=== PATIENT | male | born 1945 | race Caucasian/White ===

== ENCOUNTER 2018-01-03 04:26 | Emergency (ER) | payer OTHER ==
[2018-01-03 17:03] LABS: #Eosinphils 0.1 thou/uL (0.0-0.7); #Lymphocytes 0.5 thou/uL (1.20-3.40); #Monocytes 0.3 thou/uL (0.11-0.59); #Neutrophils 9.3 thou/uL (1.40-6.50); %Eosinophils 0.6 % (0.0-10.0); %Lymphocytes 4.7 % (21.0-51.0); %Monocytes 3.2 % (0.0-10.0); %Neutrophils 91.6 % (42.0-75.0); Hemoglobin 14.3 g/dL (14.0-18.0); Mean Corpuscular HGB CONC 34.2 g/dL (32.0-36.0); Mean Corpuscular Hemoglobin 34.1 pg (27.0-31.0); Mean Corpuscular Volume 99.7 fl (80.0-94.0); Mean Platelet Volume 6.5 fL (7.4-10.4); Platelet Count 268 thou/uL (130-400); RBC Distribution Width 13.3 % (11.5-14.5); White Blood Cell (WBC) Count 10.1 thou/uL (4.8-10.8)
[2018-01-03 17:08] LABS: ALV-art Gradient 80.375 (0-20); Actual Bicarbonate (HCO3a) 29.8 mEq/L (22-26); Analyzer IN Cardio ER; Base Excess (BEa) 4.1 mEq/L (0 (+/-) 2.5); CO2 Tension 48.9 mmHg (35.0-45.0); Calcium, Ionized 1.2 mmol/L (1.12-1.30); Hematocrit-ABG 41.5 % (42.0-52.0); Hemoglobin (Hb) 13.9 g/dL (14.0-18.0); O2 Tension (PaO2) 72.4 mmHg (80.0-100.0); Puncture Site L.R.
[2018-01-03 17:22] LABS: Anion Gap 9 mmol/L (10-20); BUN (Urea Nitrogen) 15 mg/dL (8.4-25.7); Calc. Creatinine Clearance 0 mL/min (70-130); Calcium 9.2 mg/dL (7.8-10.44); Carbon Dioxide 31 mmol/L (23-31); Chloride 104 mmol/L (98-107); Estimated GFR-MDRD 80; Glucose 165 mg/dL (83-110); Potassium 4.6 mmol/L (3.5-5.1); Sodium 139 mmol/L (136-145)
[2018-01-03] MEDS ORDERED: Magnesium Sulfate 2 GM/100 ML BAG ONE (17:27)
[2018-01-03 17:29] LABS: CKMB 4.6 ng/mL (0-6.6); Troponin I 0.084 ng/mL (< 0.028)
--- NOTE | 2018-01-03 19:01 | RAD ---
CHEST ONE VIEW 01/03/18 HISTORY: Dyspnea. COMPARISON: Chest radiograph 09/07/17. FINDINGS: Moderate sized right sided layering pleural effusion. Heart size is enlarged. No pneumothorax. Underlying right sided infiltrate cannot be excluded. IMPRESSION: 1. Layering right pleural effusion, small to moderate. 2. Underlying right consolidation cannot be excluded. Followup recommended. POS: [facility]
--- NOTE | 2018-01-06 15:57 | EKG ---
Test Reason : Blood Pressure : / mmHG Vent. Rate : 088 BPM Atrial Rate : 088 BPM P-R Int : 138 ms QRS Dur : 094 ms QT Int : 388 ms P-R-T Axes : 077 -21 029 degrees QTc Int : 469 ms Normal sinus rhythm Nonspecific ST abnormality Abnormal ECG Confirmed by JOEL CHAPMAN, MALATHI ([id number]), web content editor FLOR CARD ([id number] on 01/06/2018 3:56:30 PM Referred By: Confirmed By:MALATHI MALDONADO MD
== END 2018-01-03 21:14 | disposition home or self-care (01) ==
LOC: ERS 16:25
DX: J44.1 Chronic obstructive pulmonary disease with (acute) exacerbation (principal); E78.5 Hyperlipidemia, unspecified; I10 Essential (primary) hypertension; F17.210 Nicotine dependence, cigarettes, uncomplicated; E03.9 Hypothyroidism, unspecified; Z79.899 Other long term (current) drug therapy; Z79.84 Long term (current) use of oral hypoglycemic drugs
CPT/HCPCS: 36415; 71045; 80048; 82553; 82805; 84484; 85025; 93005; 94640; 94660; 96365; 96375; J2920; J3475; J7620

== ENCOUNTER 2021-07-15 02:18 | Inpatient (IN) | payer MEDICARE ==
[2021-07-15] MEDS ORDERED: Senokot S 8.6-50 MG TAB PO PRN (09:14)
[2021-07-15] MEDS ORDERED: HYDROcodone/Acetaminophen 5/325 mg Tablet PO PRN (09:14)
[2021-07-15] MEDS ORDERED: Furosemide 40 MG/4 ML VIAL SLOW IVP SCH (09:14)
[2021-07-15] MEDS ORDERED: Acetaminophen 325 MG TAB PO PRN (09:14)
[2021-07-15] MEDS ORDERED: methylPREDNISolone Sod Succ 40 MG VIAL IVP SCH (09:18)
[2021-07-15] MEDS ORDERED: Dextrose 5% in Water 1,000 ML IV PRN (09:20)
[2021-07-15] MEDS ORDERED: Dextrose 50% Abboject 50 ML SYRINGE SLOW IVP PRN (09:20)
[2021-07-15 10:03] LABS: #Basophils 0.1 thou/uL (0.0-0.2); #Lymphocytes 0.3 thou/uL (1.20-3.40); #Monocytes 0.1 thou/uL (0.11-0.59); #Neutrophils 7.7 thou/uL (1.40-6.50); %Basophils 1.2 % (0.0-1.0); %Eosinophils 0.2 % (0.0-10.0); %Lymphocytes 3.2 % (21.0-51.0); %Monocytes 1.2 % (0.0-10.0); %Neutrophils 94.2 % (42.0-75.0); Hemoglobin 15.1 g/dL (14.0-18.0); Mean Corpuscular HGB CONC 33.4 g/dL (32.0-36.0); Mean Corpuscular Hemoglobin 33.6 pg (27.0-31.0); Platelet Count 309 thou/uL (130-400); RBC Distribution Width 12.1 % (11.5-14.5); White Blood Cell (WBC) Count 8.2 thou/uL (4.8-10.8)
[2021-07-15 10:24] LABS: ALT (SGPT) 22 U/L (8-55); AST (SGOT) 15 U/L (5-34); Albumin 3.9 g/dL (3.4-4.8); Alkaline Phosphatase 92 U/L (40-110); Anion Gap 15 mmol/L (10-20); BUN (Urea Nitrogen) 13 mg/dL (8.4-25.7); Bilirubin, Total 0.3 mg/dL (0.2-1.2); Calc. Creatinine Clearance 0 mL/min (70-130); Calcium 9.6 mg/dL (7.8-10.44); Carbon Dioxide 29 mmol/L (23-31); Chloride 100 mmol/L (98-107); Globulin 2.8 g/dL (2.4-3.5); Glucose 266 mg/dL (83-110); Potassium 5.2 mmol/L (3.5-5.1); Protein, Total 6.7 g/dL (5.8-8.1); Sodium 139 mmol/L (136-145)
[2021-07-15 10:27] LABS: Troponin I 0.036 ng/mL (< 0.028)
[2021-07-15] MEDS: cefTRIAXone\\ROCEPHIN 1 GM in Sodium Chloride 0.9% 100 ML IVPB SCH ×3 (11:57→21:40)
[2021-07-15] MEDS: methylPREDNISolone Sod Succ/PF 125 MG/2 ML VIAL IVP SCH ×2 (18:54→21:40)
[2021-07-15] MEDS: Furosemide 40 MG/4 ML VIAL SLOW IVP SCH (18:54)
[2021-07-15] MEDS: Budesonide 0.5 MG/2 ML NEB NEB SCH (18:56)
[2021-07-15] MEDS ORDERED: Non-Formulary Item 1 EACH (Melatonin [Melatonin] 5 MG Tablet) PO SCH (21:00)
[2021-07-15] MEDS ORDERED: Non-Formulary Item 1 EACH (Trazodone Hcl [Trazodone Hcl] 100 MG Tablet) PO SCH (21:00)
[2021-07-15] MEDS: Melatonin 3 MG TAB PO SCH (21:43)
[2021-07-15] MEDS: Doxycycline 100 MG CAP PO SCH (21:43)
[2021-07-15] MEDS: guaiFENesin ER 600 MG TAB PO SCH (21:44)
[2021-07-15] MEDS: traZODone HCl 50 MG TAB PO SCH (21:44)
[2021-07-15] MEDS: Lantus 1000 UNITS/10 ML VIAL SC SCH (22:10)
[2021-07-16] MEDS: Albuterol Sulfate 2.5 mg/3 ml Neb EZPAP SCH ×2 (01:16→07:26)
[2021-07-16 05:01] LABS: #Lymphocytes 0.5 thou/uL (1.20-3.40); #Monocytes 0.2 thou/uL (0.11-0.59); #Neutrophils 9.9 thou/uL (1.40-6.50); %Eosinophils 0.4 % (0.0-10.0); %Lymphocytes 4.6 % (21.0-51.0); %Monocytes 1.4 % (0.0-10.0); %Neutrophils 93.6 % (42.0-75.0); Hemoglobin 13.5 g/dL (14.0-18.0); Mean Corpuscular HGB CONC 31.8 g/dL (32.0-36.0); Mean Corpuscular Hemoglobin 32.3 pg (27.0-31.0); Mean Platelet Volume 8.4 fL (7.4-10.4); Platelet Count 256 thou/uL (130-400); RBC Distribution Width 12.1 % (11.5-14.5); Red Blood Cell (RBC) Count 4.18 mill/uL (4.70-6.10); White Blood Cell (WBC) Count 10.6 thou/uL (4.8-10.8)
[2021-07-16 05:20] LABS: Anion Gap 16 mmol/L (10-20); BUN (Urea Nitrogen) 21 mg/dL (8.4-25.7); Calc. Creatinine Clearance 0 mL/min (70-130); Calcium 9.2 mg/dL (7.8-10.44); Carbon Dioxide 29 mmol/L (23-31); Chloride 100 mmol/L (98-107); Glucose 280 mg/dL (83-110); Potassium 4.8 mmol/L (3.5-5.1); Sodium 140 mmol/L (136-145)
[2021-07-16] MEDS: Levothyroxine 175 MCG TAB PO SCH (05:50)
[2021-07-16] MEDS: Furosemide 40 MG/4 ML VIAL SLOW IVP SCH ×2 (05:50→16:18)
[2021-07-16] MEDS: methylPREDNISolone Sod Succ/PF 125 MG/2 ML VIAL IVP SCH ×2 (05:51→16:18)
[2021-07-16] MEDS: HumaLOG 300 UNITS/3 ML VIAL SC PRN ×3 (05:52→17:52)
[2021-07-16 06:03] VITALS: BMI 36.8
[2021-07-16] MEDS: Budesonide 0.5 MG/2 ML NEB NEB SCH ×2 (07:29→18:30)
[2021-07-16] MEDS ORDERED: Non-Formulary Item 1 EACH (Levothyroxine Sodium [Levothyroxine] 175 MCG Capsule) PO SCH (09:00)
[2021-07-16] MEDS ORDERED: Non-Formulary Item 1 EACH (Omeprazole [Omeprazole] 20 MG Capsule.Dr) PO SCH (09:00)
[2021-07-16] MEDS ORDERED: VARENICLINE TARTRATE 1 MG PO SCH (09:00)
[2021-07-16] MEDS ORDERED: Albuterol 200 PUFF (6.7GM INHALER) INH PRN (10:06)
[2021-07-16] MEDS ORDERED: Fluticasone Propionate Nasal Spray 16 gm Bottle NASAL SCH (10:15)
[2021-07-16] MEDS: Enoxaparin Sodium 40 MG/0.4 ML SYRINGE SC SCH (10:31)
[2021-07-16] MEDS: guaiFENesin ER 600 MG TAB PO SCH ×2 (10:31→20:23)
[2021-07-16] MEDS: Doxycycline 100 MG CAP PO SCH ×2 (10:31→20:23)
[2021-07-16] MEDS: Simvastatin 10 MG TAB PO SCH (10:32)
[2021-07-16] MEDS: Melatonin 3 MG TAB PO SCH (20:22)
[2021-07-16] MEDS: traZODone HCl 50 MG TAB PO SCH (20:22)
[2021-07-16] MEDS: Lantus 1000 UNITS/10 ML VIAL SC SCH (20:29)
[2021-07-16] MEDS: cefTRIAXone\\ROCEPHIN 1 GM in Sodium Chloride 0.9% 100 ML IVPB SCH (20:41)
[2021-07-16] MEDS ORDERED: Bacteriostatic Water 30 ML VIAL FS PRN (20:45)
[2021-07-16] MEDS: Fluticasone Propionate Nasal Spray 16 gm Bottle NASAL SCH (22:47)
[2021-07-16] MEDS: methylPREDNISolone Sod Succ 40 MG VIAL IVP SCH (22:48)
[2021-07-17] MEDS ORDERED: methylPREDNISolone Sod Succ 40 MG VIAL ONE (05:32)
[2021-07-17] MEDS: Budesonide 0.5 MG/2 ML NEB NEB SCH ×2 (07:00→19:04)
[2021-07-17] MEDS: Furosemide 40 MG/4 ML VIAL SLOW IVP SCH ×3 (07:31→14:00)
[2021-07-17] MEDS: Levothyroxine 175 MCG TAB PO SCH ×2 (07:32→07:49)
[2021-07-17] MEDS: methylPREDNISolone Sod Succ 40 MG VIAL IVP SCH ×2 (07:34→07:49)
[2021-07-17] MEDS: Doxycycline 100 MG CAP PO SCH ×2 (10:08→21:33)
[2021-07-17] MEDS: guaiFENesin ER 600 MG TAB PO SCH ×2 (10:09→21:33)
[2021-07-17] MEDS: Enoxaparin Sodium 40 MG/0.4 ML SYRINGE SC SCH (10:09)
[2021-07-17] MEDS: Simvastatin 10 MG TAB PO SCH (10:09)
[2021-07-17] MEDS: Fluticasone Propionate Nasal Spray 16 gm Bottle NASAL SCH ×2 (10:14→21:34)
[2021-07-17] MEDS: HumaLOG 300 UNITS/3 ML VIAL SC PRN ×2 (12:43→17:55)
[2021-07-17 18:17] LABS: BUN (Urea Nitrogen) 23 mg/dL (8.4-25.7); Calc. Creatinine Clearance 110 mL/min (70-130); Calcium 9.5 mg/dL (7.8-10.44); Glucose 187 mg/dL (83-110)
[2021-07-17 18:27] LABS: Anion Gap 19 mmol/L (10-20); Carbon Dioxide 32 mmol/L (23-31); Chloride 95 mmol/L (98-107); Potassium 4.6 mmol/L (3.5-5.1); Sodium 141 mmol/L (136-145)
[2021-07-17] MEDS: traZODone HCl 50 MG TAB PO SCH (21:32)
[2021-07-17] MEDS: cefTRIAXone\\ROCEPHIN 1 GM in Sodium Chloride 0.9% 100 ML IVPB SCH (21:32)
[2021-07-17] MEDS: Melatonin 3 MG TAB PO SCH (21:33)
[2021-07-17] MEDS: Lantus 1000 UNITS/10 ML VIAL SC SCH (21:35)
[2021-07-17] MEDS: Albuterol Sulfate 2.5 mg/3 ml Neb NEB PRN (23:18)
[2021-07-18] MEDS ORDERED: ALPRAZolam 0.5 MG TAB PO SCH (03:00)
[2021-07-18] MEDS: Albuterol Sulfate 2.5 mg/3 ml Neb NEB PRN ×2 (03:37→04:20)
[2021-07-18 06:12] LABS: Anion Gap 12 mmol/L (10-20); BUN (Urea Nitrogen) 23 mg/dL (8.4-25.7); Calc. Creatinine Clearance 111 mL/min (70-130); Calcium 8.9 mg/dL (7.8-10.44); Carbon Dioxide 36 mmol/L (23-31); Chloride 97 mmol/L (98-107); Glucose 166 mg/dL (83-110); Potassium 3.7 mmol/L (3.5-5.1); Sodium 141 mmol/L (136-145)
[2021-07-18] MEDS: Furosemide 40 MG/4 ML VIAL SLOW IVP SCH (06:34)
[2021-07-18] MEDS: HumaLOG 300 UNITS/3 ML VIAL SC PRN ×2 (06:34→11:20)
[2021-07-18] MEDS: Levothyroxine 175 MCG TAB PO SCH (06:34)
[2021-07-18 07:43] VITALS: BP 147/72
[2021-07-18] MEDS: Simvastatin 10 MG TAB PO SCH (07:43)
[2021-07-18] MEDS: Enoxaparin Sodium 40 MG/0.4 ML SYRINGE SC SCH (07:44)
[2021-07-18] MEDS: Doxycycline 100 MG CAP PO SCH (07:44)
[2021-07-18] MEDS: guaiFENesin ER 600 MG TAB PO SCH (07:45)
[2021-07-18] MEDS: Fluticasone Propionate Nasal Spray 16 gm Bottle NASAL SCH (07:45)
[2021-07-18 07:54] VITALS: TEMP 97.7
[2021-07-18] MEDS ORDERED: predniSONE 20 MG TAB PO SCH (08:00)
[2021-07-18] MEDS: Budesonide 0.5 MG/2 ML NEB NEB SCH (08:07)
== END 2021-07-18 12:34 | disposition home or self-care (01) | DRG 291 ==
LOC: 2SE 03:27
PROVIDERS: ADMIT Student in an Organized Health Care Education/Training Program; ATTEND Internal Medicine
DX: I11.0 Hypertensive heart disease with heart failure (principal); J96.21 Acute and chronic respiratory failure with hypoxia; J44.1 Chronic obstructive pulmonary disease with (acute) exacerbation; Z20.822 Contact with and (suspected) exposure to COVID-19; I50.33 Acute on chronic diastolic (congestive) heart failure; E03.9 Hypothyroidism, unspecified; E11.65 Type 2 diabetes mellitus with hyperglycemia; K21.9 Gastro-esophageal reflux disease without esophagitis; E66.9 Obesity, unspecified; E78.5 Hyperlipidemia, unspecified; Z99.81 Dependence on supplemental oxygen; Z79.51 Long term (current) use of inhaled steroids; Z79.890 Hormone replacement therapy; Z79.84 Long term (current) use of oral hypoglycemic drugs; Z90.49 Acquired absence of other specified parts of digestive tract; Z87.891 Personal history of nicotine dependence; Z68.36 Body mass index [BMI] 36.0-36.9, adult
CPT/HCPCS: 36415; 36416; 71046; 80048; 80053; 83880; 84145; 84484; 85025; 93306; 94640; J0696; J1650; J1815; J1940; J2920; J2930; J3490; J7512; J7611; J7620; J7626

== ENCOUNTER 2021-08-03 23:31 | Emergency (ER) | payer MEDICARE, OTHER ==
[2021-08-04 03:28] LABS: CKMB 5.1 ng/mL (0-6.6)
== END 2021-08-04 03:10 | disposition short-term general hospital (02) ==
LOC: ERS 23:31
DX: J44.1 Chronic obstructive pulmonary disease with (acute) exacerbation (principal); E03.9 Hypothyroidism, unspecified; E78.5 Hyperlipidemia, unspecified; I10 Essential (primary) hypertension; E11.9 Type 2 diabetes mellitus without complications; Z87.891 Personal history of nicotine dependence
CPT/HCPCS: 36415; 82553; 84484; 93005; 94760; J7620

== ENCOUNTER 2021-09-12 05:52 | Inpatient (IN) | payer MEDICARE, OTHER ==
[2021-09-12] MEDS ORDERED: Acetaminophen 325 MG TAB PO PRN (08:02)
[2021-09-12] MEDS ORDERED: Bisacodyl 5 MG TAB PO PRN (08:02)
[2021-09-12] MEDS ORDERED: HYDROcodone/Acetaminophen 5/325 mg Tablet PO PRN (08:02)
[2021-09-12] MEDS ORDERED: Guaifenesin DM 100-10/5 ML UDCUP PO PRN (08:02)
[2021-09-12] MEDS ORDERED: Ondansetron PF 4 MG/2 ML Vial IVP PRN (08:02)
[2021-09-12] MEDS ORDERED: Albuterol Sulfate 2.5 mg/3 ml Neb NEB PRN (08:41)
[2021-09-12] MEDS ORDERED: Furosemide 100 MG/10 ML VIAL SLOW IVP SCH (09:45)
[2021-09-12] MEDS: Cefepime 1 GM in Sodium Chloride 0.9% 100 ML IVPB SCH ×2 (10:57→20:55)
[2021-09-12] MEDS: Enoxaparin Sodium 40 MG/0.4 ML SYRINGE SC SCH (10:57)
[2021-09-12] MEDS: Nicotine 14 MG PATCH TD SCH (10:58)
[2021-09-12] MEDS: methylPREDNISolone Sod Succ 40 MG VIAL IVP SCH ×3 (10:59→23:48)
[2021-09-12 11:40] LABS: Bacteria/HPF None Seen HPF (None Seen); Bilirubin Negative (Negative); Blood, Urine Trace (Negative); Clarity Clear (Clear); Glucose, Urine (Dipstick) Normal (Negative); Ketone, Urine Trace mg/dL (Negative); Leukocyte Negative Leu/uL (Negative); Nitrite Negative (Negative); Protein, Urine (Dipstick) 20 mg/dL (Neg-Trace); Specific Gravity, Urine 1.026 (1.002-1.036); Squamous Epithelial 0-3 HPF (0-3); Urobilinogen Normal mg/dL (Less than 2); WBC/HPF 0-3 HPF (0-3); pH, Urine 5.5 (5.0-9.0)
[2021-09-12 11:58] LABS: Legionella Urinary Ag Negative (Negative); Strep pneumo Urine Ag NEGATIVE (NEGATIVE)
[2021-09-12] MEDS ORDERED: Ipratropium Bromide 2.5 ml Neb NEB SCH (13:00)
[2021-09-12] MEDS: Furosemide 100 MG/10 ML VIAL SLOW IVP SCH (13:09)
[2021-09-12] MEDS ORDERED: Dextrose 50% Abboject 50 ML SYRINGE SLOW IVP PRN (17:33)
[2021-09-12] MEDS ORDERED: Dextrose 5% in Water 1,000 ML IV PRN (17:33)
[2021-09-12] MEDS: Insulin Regular 300 UNITS/3 ML VIAL SC PRN (17:45)
[2021-09-12] MEDS: traZODone HCl 50 MG TAB PO SCH (20:55)
[2021-09-12] MEDS: Melatonin 3 MG TAB PO SCH (20:55)
[2021-09-12] MEDS ORDERED: Non-Formulary Item 1 EACH (Trazodone Hcl [Trazodone Hcl] 100 MG Tablet) PO SCH (21:00)
[2021-09-13 05:16] LABS: #Lymphocytes 0.6 thou/uL (1.20-3.40); #Monocytes 0.6 thou/uL (0.11-0.59); %Eosinophils 0.2 % (0.0-10.0); %Lymphocytes 4.3 % (21.0-51.0); %Monocytes 3.9 % (0.0-10.0); %Neutrophils 91.6 % (42.0-75.0); Hemoglobin 13.6 g/dL (14.0-18.0); Mean Corpuscular HGB CONC 34.8 g/dL (32.0-36.0); Mean Corpuscular Hemoglobin 34.1 pg (27.0-31.0); Mean Corpuscular Volume 98.2 fL (78.0-98.0); Mean Platelet Volume 6.6 fL (7.4-10.4); Platelet Count 281 thou/uL (130-400); RBC Distribution Width 12.2 % (11.5-14.5); Red Blood Cell (RBC) Count 3.97 mill/uL (4.70-6.10); White Blood Cell (WBC) Count 14.2 thou/uL (4.8-10.8)
[2021-09-13 05:40] LABS: Anion Gap 14 mmol/L (10-20); BUN (Urea Nitrogen) 16 mg/dL (8.4-25.7); Calc. Creatinine Clearance 112 mL/min (70-130); Calcium 9.7 mg/dL (7.8-10.44); Carbon Dioxide 30 mmol/L (23-31); Chloride 100 mmol/L (98-107); Glucose 207 mg/dL (83-110); Sodium 140 mmol/L (136-145)
[2021-09-13] MEDS: Levothyroxine 175 MCG TAB PO SCH (05:41)
[2021-09-13] MEDS: Furosemide 100 MG/10 ML VIAL SLOW IVP SCH ×2 (05:41→13:37)
[2021-09-13] MEDS: methylPREDNISolone Sod Succ 40 MG VIAL IVP SCH ×4 (05:41→23:12)
[2021-09-13] MEDS: Insulin Regular 300 UNITS/3 ML VIAL SC PRN ×2 (06:26→20:29)
[2021-09-13 06:29] VITALS: BMI 37.3
[2021-09-13] MEDS ORDERED: Nicotine 14 MG PATCH TD SCH (09:00)
[2021-09-13] MEDS ORDERED: Non-Formulary Item 1 EACH (Levothyroxine Sodium [Levothyroxine] 175 MCG Capsule) PO SCH (09:00)
[2021-09-13] MEDS ORDERED: Non-Formulary Item 1 EACH (Tiotropium Bromide 4 GM Inhaler) IH SCH (09:00)
[2021-09-13] MEDS ORDERED: Non-Formulary Item 1 EACH (Omeprazole [Omeprazole] 20 MG Capsule.Dr) PO SCH (09:00)
[2021-09-13] MEDS: Simvastatin 10 MG TAB PO SCH (09:38)
[2021-09-13] MEDS: Nicotine 14 MG PATCH TD SCH (09:39)
[2021-09-13] MEDS: Enoxaparin Sodium 40 MG/0.4 ML SYRINGE SC SCH (09:39)
[2021-09-13] MEDS: traZODone HCl 50 MG TAB PO SCH (20:28)
[2021-09-13] MEDS: Melatonin 3 MG TAB PO SCH (20:28)
[2021-09-14 05:31] LABS: Anion Gap 12 mmol/L (10-20); BUN (Urea Nitrogen) 21 mg/dL (8.4-25.7); Calc. Creatinine Clearance 103 mL/min (70-130); Calcium 9.1 mg/dL (7.8-10.44); Carbon Dioxide 33 mmol/L (23-31); Chloride 98 mmol/L (98-107); Glucose 205 mg/dL (83-110); Potassium 4.2 mmol/L (3.5-5.1); Sodium 139 mmol/L (136-145)
[2021-09-14] MEDS: Furosemide 100 MG/10 ML VIAL SLOW IVP SCH (06:10)
[2021-09-14] MEDS: methylPREDNISolone Sod Succ 40 MG VIAL IVP SCH (06:10)
[2021-09-14] MEDS: Levothyroxine 175 MCG TAB PO SCH (06:10)
[2021-09-14] MEDS: Insulin Regular 300 UNITS/3 ML VIAL SC PRN ×2 (06:18→10:53)
[2021-09-14] MEDS: Simvastatin 10 MG TAB PO SCH (08:36)
[2021-09-14] MEDS: Nicotine 14 MG PATCH TD SCH (08:36)
[2021-09-14] MEDS: Enoxaparin Sodium 40 MG/0.4 ML SYRINGE SC SCH (08:36)
[2021-09-14 12:12] VITALS: BP 140/67; TEMP 97.7
== END 2021-09-14 13:02 | disposition home or self-care (01) | DRG 291 ==
LOC: 2SW 07:10 → OBSVTOIN 09-13 16:39
PROVIDERS: ADMIT Internal Medicine; ATTEND Internal Medicine
DX: I11.0 Hypertensive heart disease with heart failure (principal); I50.33 Acute on chronic diastolic (congestive) heart failure; J96.21 Acute and chronic respiratory failure with hypoxia; J44.1 Chronic obstructive pulmonary disease with (acute) exacerbation; Z20.822 Contact with and (suspected) exposure to COVID-19; E66.01 Morbid (severe) obesity due to excess calories; E78.5 Hyperlipidemia, unspecified; E11.65 Type 2 diabetes mellitus with hyperglycemia; Z99.81 Dependence on supplemental oxygen; Z79.890 Hormone replacement therapy; Z79.51 Long term (current) use of inhaled steroids; Z79.84 Long term (current) use of oral hypoglycemic drugs; Z79.899 Other long term (current) drug therapy; Z90.49 Acquired absence of other specified parts of digestive tract; Z87.891 Personal history of nicotine dependence; Z68.38 Body mass index [BMI] 38.0-38.9, adult
CPT/HCPCS: 36415; 36416; 71045; 80048; 81001; 83880; 84145; 85025; 87449; 87899; 93005; 93010; 94640; 94760; 96372; 96374; 96375; 96376; G0378; J0692; J1650; J1815; J1940; J2920; J3490; J7620